=== PATIENT | male | born 1980 | race Caucasian/White ===

== ENCOUNTER 2018-05-13 22:34 | Emergency (ER) | payer OTHER ==
[2018-05-13] MEDS ORDERED: DiphenhydrAMINE 50 mg/ml Inj IVP STA (23:16)
--- NOTE | 2018-05-13 23:22 | ED PDOC ---
HPI: Skin/Bite Injury Time Seen by Provider: 05/13/18 22:42 Chief Complaint (Nursing): Abnormal Skin Integrity Chief Complaint (Provider): Rash History Per: Patient Additional Complaint(s): To ED for evaluation of itchy red hives all over body, onset today at 10am. Pt can not identify any triggering factors. no new foods, lotions, detergents or medications. Pt took Advil without relief. Past Medical History Reviewed: Nursing Documentation, Vital Signs Vital Signs: Last Vital Signs Temp 98.7 F 05/13/18 22:41 Pulse 63 05/13/18 22:41 Resp 16 05/13/18 22:41 BP 132/85 05/13/18 22:41 Pulse Ox 98 05/13/18 22:41 - Medical History PMH: No Chronic Diseases - Surgical History Surgical History: No Surg Hx - Family History Family History: States: No Known Family Hx - Living Arrangements Living Arrangements: With Family - Social History Current smoker - smoking cessation education provided: No - Allergies Allergies/Adverse Reactions: Allergies Allergy/AdvReac Type Severity Reaction Status Date / Time cucumber Allergy SWELLING Verified 05/13/18 22:41 Review of Systems ROS Statement: Except As Marked, All Systems Reviewed And Found Negative Skin: Positive for: Rash Physical Exam - Reviewed Nursing Documentation Reviewed: Yes Vital Signs Reviewed: Yes - Physical Exam Appears: Positive for: Well, Non-toxic, No Acute Distress Head Exam: Positive for: ATRAUMATIC, NORMAL INSPECTION, NORMOCEPHALIC Skin: Positive for: Normal Color, Warm, Rash (erythematous maculopapular rash scattered over neck, toso and all extremities) Eye Exam: Positive for: EOMI, Normal appearance, PERRL ENT: Positive for: Normal ENT Inspection Neck: Positive for: Normal, Painless ROM Cardiovascular/Chest: Positive for: Regular Rate, Rhythm Respiratory: Positive for: CNT, Normal Breath Sounds Gastrointestinal/Abdominal: Positive for: Normal Exam, Soft Back: Positive for: Normal Inspection Extremity: Positive for: Normal ROM Neurologic/Psych: Positive for: Alert, Oriented - ECG O2 Sat by Pulse Oximetry: 98 Medical Decision Making Medical Decision Making: Medicated with IV Solumderol, Pepcid and Benadryl Pt appears greatly improved on re-eval. Given Medrol Dose Pack and benadryl RX to continue at home. Advised to return to ED if at anytime condition worsens Disposition - Clinical Impression Clinical Impression: Urticaria - Patient ED Disposition Is Patient to be Admitted: No - Disposition Disposition: Routine/Home Disposition Time: 23:25 Condition: STABLE
[2018-05-13] MEDS ORDERED: DiphenhydrAMINE 50 mg/ml Inj ONE (23:31)
[2018-05-14 00:29] VITALS: BP 108/70; PULSE 60; RESP 18; TEMP 98; O2SAT 100
== END 2018-05-14 00:27 | disposition home or self-care (01) ==
LOC: H.ER 22:34
DX: L50.9 Urticaria, unspecified (principal)
CPT/HCPCS: 96374; 96375; 99283; J1200; J2930